=== PATIENT | male | born 1985 | race Caucasian/White ===

== ENCOUNTER 2016-11-05 05:41 | Emergency (ER) | payer SELFPAY ==
[2016-11-05 05:53] VITALS: BP 128/85; PULSE 71; RESP 18; TEMP 97.9; O2SAT 100
[2016-11-05] MEDS ORDERED: KETOROLAC 30 MG/1 ML SDV IM ONE (05:57)
[2016-11-05] MEDS ORDERED: DIAZEPAM 5 MG TAB PO ONE (05:58)
--- NOTE | 2016-11-05 06:07 | EDPHY ---
H & P Time Seen by Provider: 11/05/16 05:57 HPI/ROS: 31-year-old male presents complaining of left in for scapular pain of 1 and half days duration. He has tried massage, ice, ibuprofen, stretching with no relief. 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 He attributes the pain to stress. He states he is trying to buy his grandfather's place and is very stressed about it. No difficulty breathing, no fevers no chills no rash No dyspnea on exertion. No leg pain, no leg swelling No hospitalizations, no recent surgery, prior history of left shoulder surgery. Review of systems As per HPI General no fever no chills no weakness HEENT no eye pain no eye discharge. No eye redness, no sore throat Respiratory no cough, no shortness of breath Cardiac no chest pain, no peripheral edema GI no abdominal pain, no diarrhea, no constipation, no nausea, no vomiting no flank pain, no hematuria, no dysuria Musculoskeletal positive myalgias, no joint pain Heme no easy bruising, no easy bleeding Endo no polyuria, no polydipsia Skin no rashes, no pruritus Neuro no syncope, no dizziness, no headaches Psych is no suicidal ideation, no homicidal ideation Past Medical/Surgical History: Prior left shoulder surgery Prior STD-chlamydia Social History: Drinks alcohol, denies drug use Smoking Status: Heavy smoker Physical Exam: 31-year-old male alert and oriented, seated on chair rather than gurney because he states it is more comfortable In moderate distress secondary to left upper back spasm, nontoxic appearance, afebrile HEENT atraumatic normocephalic, extraocular muscles intact, anicteric Oropharynx negative for erythema negative exudate, tolerating her own secretions Neck supple no meningismus Lungs clear to auscultation bilaterally, symmetrical Heart regular rate and rhythm without murmur rub or gallop Abdomen nondistended normoactive bowel sounds soft nontender Back no CVA tenderness, no step-offs, no spinal tenderness Left infrascapular swelling and tenderness to palpation, no rash, no crepitus Full range of motion left shoulder Extremities no cyanosis clubbing or edema Neuro alert and oriented, no focal deficits Constitutional: Initial Vital Signs Temperature (C) 36.6 C 11/05/16 05:50 Heart Rate 71 11/05/16 05:50 Respiratory Rate 18 11/05/16 05:50 Blood Pressure 128/85 H 11/05/16 05:50 O2 Sat (%) 100 11/05/16 05:50 O2 Delivery Mode Room Air Allergies/Adverse Reactions: No Known Allergies Allergy (Verified 11/05/16 05:53) Home Medications: Medication Instructions Recorded Diazepam [Valium 5 MG (*)] 5 - 10 mg PO TID PRN #15 tab 11/05/16 Medical Decision Making ED Course/Re-evaluation: Patient seen and evaluated for left upper back pain. Differential diagnosis considered and not limited to: Back strain, muscle spasm, pneumothorax, disc herniation Physical exam with good lung sounds bilaterally therefore pneumothorax not suspected Back exam with in for scapular swelling and tenderness to palpation Impression left infra-scapular muscle strain, muscle spasm Plan In ER given Toradol 60 mg IM, diazepam 10 mg p.o. Advised for home may use ibuprofen as often as every 6 hours with food and given prescription for diazepam 5 mg tablets, #15. Discussed considering a TENS unit as well, can be purchased at [facility]. Advised follow up with pcp, or clinic, and return if not improving. - Data Points Medications Given: Discontinued Medications Diazepam (Valium) 10 mg PO EDNOW ONE Stop: 11/05/16 05:59 Last Admin: 11/05/16 06:05 Dose: 10 mg Ketorolac Tromethamine (Toradol) 60 mg IM EDNOW ONE Stop: 11/05/16 05:58 Last Admin: 11/05/16 06:05 Dose: 60 mg Departure - Departure Disposition: Home, Routine, Self-Care Clinical Impression: Strain of left infraspinatus muscle, Muscle spasm of back Condition: Good Instructions: Muscle Spasm (ED) Additional Instructions: Rest, may take ibuprofen every 6 hours as needed for pain-must take this with food. I am giving you a prescription for a muscle relaxant called diazepam(also called Valium) , you can take this as often as every 8 hours for a very short amount of time, it can make you sleepy, slowed reactions so NO drinking or driving, or operating heavy machinery while using this medicine. Follow up with your doctor if not improving. Return to Emergency if worsening pain, shortness of breath, of fever. Referrals: Patient,NotPresent [Primary Care Provider] - As per Instructions [facility],. [Clinic] - As per Instructions [facility] [Provider Group] - As per Instructions Stand Alone Forms: Work Excuse Prescriptions: Diazepam [Valium 5 MG (*)] 5 - 10 mg PO TID PRN #15 tab PRN Reason: Spasms
== END 2016-11-05 06:23 | disposition home or self-care (01) ==
LOC: CED 05:41
DX: S46.812A Strain of other muscles, fascia and tendons at shoulder and upper arm level, left arm, initial encounter (principal); M62.830 Muscle spasm of back; F17.200 Nicotine dependence, unspecified, uncomplicated; X58.XXXA Exposure to other specified factors, initial encounter
CPT/HCPCS: J1885

== ENCOUNTER 2016-12-09 07:55 | Emergency (ER) | payer OTHER ==
[2016-12-09 08:05] VITALS: BP 141/78; PULSE 88; RESP 20; TEMP 98.1; O2SAT 97
--- NOTE | 2016-12-09 08:25 | EDPHY ---
H & P HPI/ROS: This patient complains of right index finger injury and arrives by private vehicle.. At 2:30 p.m. yesterday he inadvertently if struck the the right 2nd finger distal phalanx with hammer a with some bony hematoma and pain. He was unable sleep due to throbbing pain moderate to severe intensity last night. He has no other associated symptoms. He took 600 mg of ibuprofen at 6:30 a.m. with minimal relief. No other exacerbating or alleviating factors. ROS: No numbness or tingling. No other neuro symptoms Musculoskeletal: No other associated injuries. Integumentary: No laceration 5 point ROS is otherwise negative. Past Medical/Surgical History: Immunizations up-to-date Smoking Status: Current every day smoker Physical Exam: Physical Exam Vital signs are normal. General: No acute distress Eyes: Pupils equal and react to light. Extraocular motions are intact. Lungs: No respiratory distress. Cardiac: Brisk capillary refill is intact throughout. Pulses are 2+ and symmetric in the affected extremity. Skin: No rash or pallor. Extremities:: Atraumatic and normal except for right index finger Right index finger: Patient has subungual hematoma comprising 50% of the nail with associated moderate tenderness to the distal phalanx into the PIP joint. Despite this, patient maintains good range of motion in flexion and extension of the affected finger. There is no malrotation of the finger when it is viewed on end. Neuro: Alert with no sensorimotor deficits in the affected finger. Initial differential diagnosis: subungual hematoma, finger contusion, finger fracture Constitutional: Initial Vital Signs Temperature (C) 36.7 C 12/09/16 07:59 Heart Rate 88 12/09/16 07:59 Respiratory Rate 20 12/09/16 07:59 Blood Pressure 141/78 H 12/09/16 07:59 O2 Sat (%) 97 12/09/16 07:59 O2 Delivery Mode Room Air Allergies/Adverse Reactions: No Known Allergies Allergy (Verified 12/09/16 08:04) Home Medications: Medication Instructions Recorded NK [No Known Home Meds] 12/09/16 MDM/Departure - MDM Diagnostics: Finger x-ray: Negative for fracture by my interpretation Imaging: I viewed and interpreted images myself Procedures: Cautery trephination: After verbal consent I used chlorhexidine scrub and cautery trephination device to make a single hole in the patient's fingernail with positive release of blood and some relief of pain. Patient tolerated this procedure well. There were no complications. The procedure was performed by myself. ED Course/Re-evaluation: Patient's wound was further cleaned by our tech after the procedure, bacitracin , Band-Aid and stack splint was applied. We counseled the patient regarding wound care and subungual hematoma. - Depart Disposition: Home, Routine, Self-Care Clinical Impression: Subungual hematoma of finger Qualifiers: Encounter type: initial encounter Qualified Code(s): S60.10XA - Contusion of unspecified finger with damage to nail, initial encounter Condition: Good Instructions: Subungual Hematoma (ED) Additional Instructions: Diagnosis: Traumatic Subungual hematoma of finger Plan: Clean the finger each day with warm soapy water Apply bacitracin ointment or similar antibacterial ointment and cover with Band- Aid while working. Also, he can use the stack splint on the finger tip until pain diminishes. Ibuprofen Tylenol for pain Ice 20 minutes at a time to 3 times a day in addition if needed. Return if you develop redness or discharge the finger that concerns for infection. Referrals: Navi Parker DO [Primary Care Provider] - As per Instructions
== END 2016-12-09 08:45 | disposition home or self-care (01) ==
LOC: CED 07:55
PROC: 0H9QXZZ Drainage of Finger Nail, External Approach (ICD-10-PCS; principal; 2016-12-09)
DX: S60.121A Contusion of right index finger with damage to nail, initial encounter (principal); F17.200 Nicotine dependence, unspecified, uncomplicated; W27.0XXA Contact with workbench tool, initial encounter
CPT/HCPCS: 73140-PO; L3925